=== PATIENT | male | born 1935 | race Caucasian/White ===

== ENCOUNTER 2017-05-11 21:33 | Observation (INO) | payer MEDICARE ==
[~2017-05-11] VITALS: Ht 172.7 cm; Wt 75.0 kg
[~2017-05-11 21:33] MED LIST: ASPI81TA82 PO; ATOR40TA49 PO; CARV6.252 PO; CLOP75 PO; ENAL10TA7 PO; FERR1TAB36 PO; GABA300C5 PO; GLIM4TAB PO; MAGN400T2 PO; METF500 PO; PRIL20CA9 PO; TAB-TAB PO; TERA5CAP3 PO; TRAD5TAB PO
[2017-05-11 21:39] VITALS: BP 171/74; PULSE 80; RESP 16; TEMP 98.2; O2SAT 97
--- NOTE | 2017-05-11 21:45 | PD ---
HPI Chief Complaint: left sided weakness Time Seen by Provider: 21:40 Travel History International Travel<30 days: No Contact w/Intl Traveler<30days: No Traveled to known affect area: No History of Present Illness HPI Patient states that while he was watching the races today on TV he started to develop left-sided tingling and weakness over the left side of the left upper arm and left lower leg. Family also stated that he appeared to develop a facial droop as well. Upon arrival of EMS patient had resolved all symptoms. Once patient arrived to emergency department patient continues to have no symptoms at all. No aggravating or alleviating factors. No associated factors such as fever headache chest pain abdominal pain back pain rash or neck stiffness Primary care is Dr. Cameron with [facility] Patient has a past medical history significant for cardiac stents, coronary artery disease, diabetes, hypertension, Past surgical significant for cardiac stenting PFSH Past Medical History Hx Anticoagulant Therapy: Yes (asa) Cancer: Yes (LUNG, LEUKEMIA) Cardiovascular Problems: Yes Chest Pain: No Coronary Artery Disease: Yes Diabetes: Yes (TYPE II) Endocrine: Yes Gastrointestinal Disorders: No Glaucoma: No Genitourinary: Yes (BPH) Hepatitis: No Hiatal Hernia: Yes Hypertension: Yes Musculoskeletal: No Neurologic: No Respiratory: Yes (SPOT ON LUNG) Integumentary: No Thyroid Disease: No Past Surgical History Abdominal Surgery: Yes (abdominal hernia repair, appendectomy ) Appendectomy: Yes Coronary Artery Bypass Graft: Yes Thoracic Surgery: Yes Other Surgery: Yes (CARDIAC BYPASS TRIPLE) Social History Alcohol Use: No Tobacco Use: No Substance Use: No Allergies-Medications (Allergen,Severity, Reaction): Uncoded Allergies: maxaquin (Allergy, Intermediate, 01/25/16) Reported Meds & Prescriptions Reported Meds & Active Scripts Active Reported Atorvastatin (Atorvastatin Calcium) 40 Mg Tab 40 Mg PO HS Metformin (Metformin HCl) 1,000 Mg Tab 1,000 Mg PO BIDPC Glimepiride 4 Mg Tab 4 Mg PO DAILY Take with breakfast or first main meal Enalapril (Enalapril Maleate) 10 Mg Tab 10 Mg PO BID Plavix (Clopidogrel Bisulfate) 75 Mg Tab 75 Mg PO DAILY Magnesium Oxide 400 Mg Tab 400 Mg PO DAILY Tradjenta (Linagliptin) 5 Mg Tab 2.5 Mg PO DAILY Review of Systems Except as stated in HPI: all other systems reviewed are Neg General / Constitutional: No: Fever Eyes: No: Visual changes HENT: No: Headaches Cardiovascular: No: Chest Pain or Discomfort Respiratory: No: Shortness of Breath Gastrointestinal: No: Abdominal Pain Genitourinary: No: Dysuria Musculoskeletal: No: Pain Skin: No Rash Neurologic: Positive: Weakness, Focal Abnormalities Psychiatric: No: Depression Endocrine: No: Polydipsia Hematologic/Lymphatic: No: Easy Bruising Physical Exam Narrative GENERAL: Elderly white male in no distress. NIH score is 0, GCS is 15 SKIN: Warm and dry. HEAD: Atraumatic. Normocephalic. EYES: Pupils equal and round. No scleral icterus. No injection or drainage. ENT: No nasal bleeding or discharge. Mucous membranes pink and moist. NECK: Trachea midline. No JVD. CARDIOVASCULAR: Regular rate and rhythm. RESPIRATORY: No accessory muscle use. Clear to auscultation. Breath sounds equal bilaterally. GASTROINTESTINAL: Abdomen soft, non-tender, nondistended. Hepatic and splenic margins not palpable. MUSCULOSKELETAL: Extremities without clubbing, cyanosis, or edema. No obvious deformities. NEUROLOGICAL: Awake and alert. No obvious cranial nerve deficits. Motor grossly within normal limits. Five out of 5 muscle strength in the arms and legs. Normal speech. PSYCHIATRIC: Appropriate mood and affect; insight and judgment normal. Data Data Last Documented VS Vital Signs Date Time Temp Pulse Resp B/P (MAP) Pulse Ox O2 Delivery O2 Flow Rate FiO2 05/11/17 22:54 78 16 115/59 (77) 95 Room Air 05/11/17 21:39 98.2 Orders Orders Electrocardiogram (05/11/17 21:57) Prothrombin Time / Inr (Pt) (05/11/17 21:57) Act Partial Throm Time (Ptt) (05/11/17 21:57) Complete Blood Count With Diff (05/11/17 21:57) Comprehensive Metabolic Panel (05/11/17 21:57) Troponin I (05/11/17 21:57) Ct Brain W/O Iv Contrast(Rout) (05/11/17 21:57) Chest, Single Ap (05/11/17 21:57) Ecg Monitoring (05/11/17 21:57) Iv Access Insert/Monitor (05/11/17 21:57) Oximetry (05/11/17 21:57) Sodium Chloride 0.9% Flush (Ns Flush) (05/11/17 22:00) Admit Order (Ed Use Only) (05/11/17 23:17) Labs Laboratory Tests Test 05/11/17 21:50 White Blood Count 7.7 TH/MM3 Red Blood Count 3.92 MIL/MM3 Hemoglobin 12.2 GM/DL Hematocrit 35.3 % Mean Corpuscular Volume 90.1 FL Mean Corpuscular Hemoglobin 31.2 PG Mean Corpuscular Hemoglobin Concent 34.7 % Red Cell Distribution Width 13.4 % Platelet Count 109 TH/MM3 Mean Platelet Volume 9.3 FL Neutrophils (%) (Auto) 54.9 % Lymphocytes (%) (Auto) 39.7 % Monocytes (%) (Auto) 4.4 % Eosinophils (%) (Auto) 0.7 % Basophils (%) (Auto) 0.3 % Neutrophils # (Auto) 4.2 TH/MM3 Lymphocytes # (Auto) 3.1 TH/MM3 Monocytes # (Auto) 0.3 TH/MM3 Eosinophils # (Auto) 0.1 TH/MM3 Basophils # (Auto) 0.0 TH/MM3 CBC Comment AUTO DIFF Differential Comment AUTO DIFF CONFIRMED Platelet Estimate LOW Platelet Morphology Comment ENLARGED Prothrombin Time 10.8 SEC Prothromb Time International Ratio 1.1 RATIO Activated Partial Thromboplast Time 23.4 SEC Blood Urea Nitrogen 15 MG/DL Creatinine 1.01 MG/DL Random Glucose 173 MG/DL Total Protein 6.9 GM/DL Albumin 3.9 GM/DL Calcium Level 9.1 MG/DL Alkaline Phosphatase 79 U/L Aspartate Amino Transf (AST/SGOT) 16 U/L Alanine Aminotransferase (ALT/SGPT) 22 U/L Total Bilirubin 0.5 MG/DL Sodium Level 133 MEQ/L Potassium Level 4.1 MEQ/L Chloride Level 99 MEQ/L Carbon Dioxide Level 24.9 MEQ/L Anion Gap 9 MEQ/L Estimat Glomerular Filtration Rate 71 ML/MIN Troponin I LESS THAN 0.02 NG/ML MDM Medical Decision Making Medical Screen Exam Complete: Yes Emergency Medical Condition: Yes Medical Record Reviewed: Yes Interpretation(s) Pulse ox shows excellent PLetH wave which shows pulse ox 96-97% on room air which is within normal limits EKG shows normal sinus rhythm, 79 bpm, normal intervals, nonspecific ST-T wave changes, no STEMI pattern noted. Differential Diagnosis TIA versus ICH versus CVA versus electrolyte abnormalities Narrative Course ct neg for ich/brain mass. also normal electrolytes. no leukocytosis/anemia. patinet will be admitted for observation and further evaluation Diagnosis Primary Impression: TIA Admitting Information Admitting Physician Requests: Observation Mitchell Cantu MD May 11, 2017 21:45
[2017-05-11] MEDS ORDERED: METF1000 PO (21:46)
[2017-05-11] MEDS ORDERED: GLIM4TAB PO (21:46)
[2017-05-11] MEDS ORDERED: ENAL10TA PO (21:46)
[2017-05-11] MEDS ORDERED: ATOR40TA16 PO (21:46)
[2017-05-11] MEDS ORDERED: PLAV75TA29 PO (21:46)
[2017-05-11] MEDS ORDERED: SODIUM CHLORIDE 0.9% FLUSH 10 ML FLUSH IVF PRN (22:00)
--- NOTE | 2017-05-11 22:31 | RADRPT ---
EXAM DATE/TIME: 05/11/2017 22:07 [facility] COMPARISON: CHEST PA & LAT, March 26, 2015, 16:16. INDICATIONS : Weakness and arm numbness. MEDICAL HISTORY : Hypertension. Myocardial infarction. Stroke. Coronary artery disease. Diabetes. Lung cancer. Leuk emia. SURGICAL HISTORY : CABG. ENCOUNTER: Initial ACUITY: 1 day PAIN SCORE: 0/10 LOCATION: Bilateral chest FINDINGS: A single view of the chest demonstrates linear scarring right upper lobe. Previous median sternotomy. No consolidation. No effusion. No pneumothorax. CONCLUSION: 1. Linear scarring right upper lobe. No acute findings. Postop CABG. Raudel Vargas MD on May 11, 2017 at 22:28 Board Certified Radiologist. This report was verified electronically.
[2017-05-11 22:32] LABS: AUTOMATED NEUTROPHIL # 4.2 TH/MM3 (1.8-7.7); BASOPHIL % 0.3 % (0.0-2.0); EOSINOPHIL # 0.1 TH/MM3 (0-0.4); EOSINOPHIL % 0.7 % (0.0-4.0); HEMATOCRIT 35.3 % (39.0-51.0); HEMOGLOBIN 12.2 GM/DL (13.0-17.0); LYMPH % 39.7 % (9.0-44.0); LYMPHOCYTE # 3.1 TH/MM3 (1.0-4.8); MEAN CELL VOLUME 90.1 FL (80.0-100.0); MEAN CORPUSCULAR HEMOGLOBIN 31.2 PG (27.0-34.0); MEAN CORPUSCULAR HGB CONC 34.7 % (32.0-36.0); MEAN PLATELET VOLUME 9.3 FL (7.0-11.0); MONO % 4.4 % (0.0-8.0); MONOCYTE # 0.3 TH/MM3 (0-0.9); NEUT % 54.9 % (16.0-70.0); PLATELET COUNT 109 TH/MM3 (150-450); RED BLOOD COUNT 3.92 MIL/MM3 (4.50-5.90); RED CELL DISTRIBUTION WIDTH 13.4 % (11.6-17.2); WHITE BLOOD COUNT 7.7 TH/MM3 (4.0-11.0)
--- NOTE | 2017-05-11 22:34 | RADRPT ---
EXAM DATE/TIME: 05/11/2017 22:25 [facility] COMPARISON: No previous studies available for comparison. INDICATIONS : Left sided weakness. RADIATION DOSE: 56.35 CTDIvol (mGy) MEDICAL HISTORY : Diabetes mellitus type 2. Cerebrovascular disease. Leukemia. SURGICAL HISTORY : None. ENCOUNTER: Initial ACUITY: 1 day PAIN SCALE: 0/10 LOCATION: cranial TECHNIQUE: Multiple contiguous axial images were obtained of the head. Using automated exposure control and adj ustment of the mA and/or kV according to patient size, radiation dose was kept as low as reasonably a chievable to obtain optimal diagnostic quality images. DICOM format image data is available electro nically for review and comparison. FINDINGS: CEREBRUM: The ventricles are normal for age. No evidence of midline shift, mass lesion, hemorrhage or acute in farction. No extra-axial fluid collections are seen. POSTERIOR FOSSA: The cerebellum and brainstem are intact. The 4th ventricle is midline. The cerebellopontine angle i s unremarkable. EXTRACRANIAL: The visualized portion of the orbits is intact. SKULL: The calvaria is intact. No evidence of skull fracture. CONCLUSION: 1. No acute intracranial abnormality. Raudel Vargas MD on May 11, 2017 at 22:32 Board Certified Radiologist. This report was verified electronically.
[2017-05-11 22:50] LABS: INTERNATIONAL NORMALIZED RATIO 1.1 RATIO; PROTHROMBIN TIME - PATIENT 10.8 SEC (9.8-11.6)
[2017-05-11 22:51] LABS: ALBUMIN 3.9 GM/DL (3.4-5.0); AST (GOT) 16 U/L (15-37); BICARBONATE 24.9 MEQ/L (21.0-32.0); BLOOD UREA NITROGEN 15 MG/DL (7-18); CALCIUM 9.1 MG/DL (8.5-10.1); CHLORIDE 99 MEQ/L (98-107); CREATININE 1.01 MG/DL (0.60-1.30); GLOMERULAR FILTRATION RATE 71 ML/MIN (>89); GLUCOSE,RANDOM 173 MG/DL (74-106); SODIUM (NA) 133 MEQ/L (136-145)
[2017-05-11 22:52] LABS: ALT (GPT) 22 U/L (12-78)
[2017-05-11 22:54] VITALS: BP 115/59; PULSE 78; RESP 16; O2SAT 95
[2017-05-11 22:56] LABS: ALKALINE PHOSPHATASE 79 U/L (45-117); TOTAL BILIRUBIN ADULT 0.5 MG/DL (0.2-1.0); TOTAL PROTEIN 6.9 GM/DL (6.4-8.2); TROPONIN I LESS THAN 0.02 NG/ML (0.02-0.05)
[2017-05-12] VITALS (9 sets, daily range): BP systolic 120–185; BP diastolic 60–86; PULSE 60–80; RESP 16–20; TEMP 97.4–98.7; O2SAT 94–100
[2017-05-12] MEDS ORDERED: CLOPIDOGREL 75 MG TAB PO ONE (04:15)
[2017-05-12] MEDS ORDERED: ASPIRIN 81 MG CHEW TAB PO ONE (04:15)
[2017-05-12] MEDS ORDERED: ENALAPRIL MALEATE 10 MG TAB PO ONE (04:15)
--- NOTE | 2017-05-12 09:01 | HHI.HP ---
HPI Service [facility] Hospitalists Primary Care Physician Sabas Cameron MD Admission Diagnosis TIA Chief Complaint: Left sided weakness Travel History International Travel<30 Days: No Contact w/Intl Traveler <30 Da: No Traveled to Known Affected Are: No History of Present Illness Mr. Mendez is an 82 y/o male with HTN, hyperlipidemia, AAA, CLL, diabetes mellitus, and CAD. Pt presented to the ER at [facility] with complaints of left sided weakness. Patient states that while he was watching the races today on TV he started to develop left-sided tingling and weakness over the left side of the left upper extremity and left lower extremity. Family also stated that he appeared to develop a facial droop as well. Upon arrival of EMS patient had resolved all symptoms. Once patient arrived to emergency department patient had symptoms. No aggravating or alleviating factors. No associated factors such as fever headache chest pain abdominal pain back pain rash, chest pain, SOB or neck stiffness. Patient reports no residual symptoms at this time is asking when he can go home. Patient reports similar symptoms about 3 months ago. Past Family Social History Past Medical History Coronary artery disease with history of CABG (1998) and stenting (2008) AAA at the distal infrarenal, in 12/2013 this measured 4.5 x 4.7cm and a length of 6.4cm GERD Diabetes Diabetic neuropathy Anemia secondary to chronic disease CKD, stage 2 Chronic lymphocytic leukemia/Small lymphocytic lymphoma and has been on observation TIA x 2 Hypertension Hyperlipidemia BPH [place] cell cancer of the neck with surgery for removal of lesion with radiation treatment. 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 He had cardiac cath with a re-in-stent stenosis and another stent employed May 2014 Appendectomy Hernia repair Hip surgery [place] cell resection in 2012 Skin cancer removals Tonsillectomy Reported Medications Atorvastatin (Atorvastatin Calcium) 40 Mg Tab 40 Mg PO HS Metformin (Metformin HCl) 1,000 Mg Tab 1,000 Mg PO BIDPC Glimepiride 4 Mg Tab 4 Mg PO DAILY Take with breakfast or first main meal Enalapril (Enalapril Maleate) 10 Mg Tab 10 Mg PO BID Plavix (Clopidogrel Bisulfate) 75 Mg Tab 75 Mg PO DAILY Magnesium Oxide 400 Mg Tab 400 Mg PO DAILY Tradjenta (Linagliptin) 5 Mg Tab 2.5 Mg PO DAILY Allergies: Uncoded Allergies: maxaquin (Allergy, Intermediate, 01/25/16) Family History His mother at a younger age, he is unsure but believes she may have had cardiac history. Social History Patient is He is retired. He has a remote history of tobacco use, quit in 1979. Denies any alcohol or drug use. Physical Exam Vital Signs Vital Signs Date Time Temp Pulse Resp B/P (MAP) Pulse Ox O2 Delivery O2 Flow Rate FiO2 05/12/17 03:43 97.4 73 16 185/80 (115) 100 05/12/17 01:07 98.7 73 16 132/65 (87) 96 05/12/17 00:24 05/11/17 22:54 78 16 115/59 (77) 95 Room Air 05/11/17 21:39 98.2 80 16 171/74 (106) 97 Physical Exam GENERAL: This is a well-nourished, well-developed patient, in no apparent distress. SKIN: No rashes, ecchymoses or lesions. Cool and dry. HEAD: Atraumatic. Normocephalic. No temporal or scalp tenderness. EYES: Pupils equal round and reactive. Extraocular motions intact. No scleral icterus. No injection or drainage. ENT: Nose without bleeding, purulent drainage or septal hematoma. Throat without erythema, tonsillar hypertrophy or exudate. Uvula midline. Airway patent. NECK: Trachea midline. No JVD or lymphadenopathy. Supple, nontender, no meningeal signs. CARDIOVASCULAR: Regular rate and rhythm without murmurs, gallops, or rubs. RESPIRATORY: Clear to auscultation. Breath sounds equal bilaterally. No wheezes , rales, or rhonchi. GASTROINTESTINAL: Abdomen soft, non-tender, nondistended. No hepato-splenomegaly , or palpable masses. No guarding. MUSCULOSKELETAL: Extremities without clubbing, cyanosis, or edema. No joint tenderness, effusion, or edema noted. No calf tenderness. Negative Homans sign bilaterally. NEUROLOGICAL: Awake and alert. Cranial nerves II through XII intact. Motor and sensory grossly within normal limits. Five out of 5 muscle strength in all muscle groups. Normal speech. Laboratory Laboratory Tests Test 05/11/17 21:50 White Blood Count 7.7 Red Blood Count 3.92 Hemoglobin 12.2 Hematocrit 35.3 Mean Corpuscular Volume 90.1 Mean Corpuscular Hemoglobin 31.2 Mean Corpuscular Hemoglobin Concent 34.7 Red Cell Distribution Width 13.4 Platelet Count 109 Mean Platelet Volume 9.3 Neutrophils (%) (Auto) 54.9 Lymphocytes (%) (Auto) 39.7 Monocytes (%) (Auto) 4.4 Eosinophils (%) (Auto) 0.7 Basophils (%) (Auto) 0.3 Neutrophils # (Auto) 4.2 Lymphocytes # (Auto) 3.1 Monocytes # (Auto) 0.3 Eosinophils # (Auto) 0.1 Basophils # (Auto) 0.0 CBC Comment AUTO DIFF Differential Comment AUTO DIFF CONFIRMED Platelet Estimate LOW Platelet Morphology Comment ENLARGED Prothrombin Time 10.8 Prothromb Time International Ratio 1.1 Activated Partial Thromboplast Time 23.4 Blood Urea Nitrogen 15 Creatinine 1.01 Random Glucose 173 Total Protein 6.9 Albumin 3.9 Calcium Level 9.1 Alkaline Phosphatase 79 Aspartate Amino Transf (AST/SGOT) 16 Alanine Aminotransferase (ALT/SGPT) 22 Total Bilirubin 0.5 Sodium Level 133 Potassium Level 4.1 Chloride Level 99 Carbon Dioxide Level 24.9 Anion Gap 9 Estimat Glomerular Filtration Rate 71 Troponin I LESS THAN 0.02 Result Diagram: 05/11/17214905/11/172149 Caprini VTE Risk Assessment Caprini VTE Risk Assessment: Mod/High Risk (score >= 2) Caprini Risk Assessment Model Point Value = 1 Point Value = 2 Point Value = 3 Point Value = 5 Age 41-60 Minor surgery BMI > 25 kg/m2 Swollen legs Varicose veins or History of unexplained or recurrent spontaneous Oral contraceptives or hormone replacement Sepsis (< 1 month) Serious lung disease, including pneumonia (< 1 month) Abnormal pulmonary function Acute myocardial infarction Congestive heart failure (< 1 month) History of inflammatory bowel disease Medical patient at bed rest Age 61-74 Arthroscopic surgery Major open surgery (> 45 min) Laparoscopic surgery (> 45 min) Malignancy Confined to bed (> 72 hours) Immobilizing plaster cast Central venous access Age >= 75 History of VTE Family history of VTE Factor V Leiden Prothrombin [id number] Lupus anticoagulant Anticardiolipin antibodies Elevated serum homocysteine Heparin-induced thrombocytopenia Other congenital or acquired thrombophilia Stroke (< 1 month) Elective arthroplasty Hip, pelvis, or leg fracture Acute spinal cord injury (< 1 month) Prophylaxis Regimen Total Risk Factor Score Risk Level Prophylaxis Regimen 0-1 Low Early ambulation 2 Moderate Order ONE of the following: *Sequential Compression Device (SCD) *Heparin 5000 units SQ BID 3-4 Higher Order ONE of the following medications: *Heparin 5000 units SQ TID *Enoxaparin/Lovenox 40 mg SQ daily (WT < 150 kg, CrCl > 30 mL/min) *Enoxaparin/Lovenox 30 mg SQ daily (WT < 150 kg, CrCl > 10-29 mL/min) *Enoxaparin/Lovenox 30 mg SQ BID (WT < 150 kg, CrCl > 30 mL/min) AND/OR *Sequential Compression Device (SCD) 5 or more Highest Order ONE of the following medications: *Heparin 5000 units SQ TID (Preferred with Epidurals) *Enoxaparin/Lovenox 40 mg SQ daily (WT < 150 kg, CrCl > 30 mL/min) *Enoxaparin/Lovenox 30 mg SQ daily (WT < 150 kg, CrCl > 10-29 mL/min) *Enoxaparin/Lovenox 30 mg SQ BID (WT < 150 kg, CrCl > 30 mL/min) AND *Sequential Compression Device (SCD) Assessment and Plan Problem List: (1) Left-sided weakness ICD Codes: R53.1 - Weakness Plan: TIA versus CVA Patient had left-sided weakness which has resolved likely TIA CT to have reviewed and reveals no acute intracranial abnormality Chest x-ray reviewed and revealed linear scarring right upper lobe. No acute findings. Postop CABG MRI and MRA of brain requested and pending US bilateral carotid arteries Echocardiogram Continuous telemetry monitoring Holter monitor PT evaluation requested HOB flat Allow permissive hypertension Consult neurology (2) Diabetes ICD Codes: E11.9 - Type 2 diabetes mellitus without complications Status: Chronic Plan: Patient takes Tradjenta, metformin and glimepiride at home- will hold Metformin at this time continue Trajenta (patient requested to bring his own as our pharmacy does not carry Trajenta), will also continue glimepiride Diabetic diet with Accu-Cheks before meals and at bedtime and sliding scale insulin coverage (3) Hyperlipidemia ICD Codes: E78.5 - Hyperlipidemia, unspecified Plan: Continue patient's home atorvastatin 40 mg by mouth daily at bedtime Lipid panel in a.m. (4) HTN (hypertension), benign ICD Codes: I10 - Essential (primary) hypertension Status: Chronic Plan: Permissive hypertension Enalapril as needed (5) CAD (coronary artery disease) ICD Codes: I25.10 - Atherosclerotic heart disease of [place] coronary artery without angina pectoris Status: Acute Plan: Continue patient's home Plavix and atorvastatin (6) AAA (abdominal aortic aneurysm) ICD Codes: I71.4 - Abdominal aortic aneurysm, without rupture Status: Chronic Plan: AAA at the distal infrarenal, in 12/2013 this measured 4.5 x 4.7cm and a length of 6.4cm Patient reports that he follows with Dr. Huitron at the [facility] and that he has had a repair 12/2013 Assessment and Plan Patient examined. Assessment and plan formulated with Sonia Holley PA-C. I agree with the above. Sonia Holley May 12, 2017 09:01 Samuel Conde DO May 15, 2017 01:07
[2017-05-12] MEDS ORDERED: ENALAPRILAT 1.25 MG/ML VIAL IV PUSH PRN (09:30)
[2017-05-12] MEDS ORDERED: DEXTROSE 50% IN WATER 50 ML VIAL(D50) IV PUSH PRN ×2 (09:45→17:45)
[2017-05-12] MEDS ORDERED: GLUCAGON 1 MG/ML VIAL OTHER PRN ×2 (09:45→17:45)
--- NOTE | 2017-05-12 10:56 | RADRPT ---
EXAM DATE/TIME: 05/12/2017 09:52 [facility] COMPARISON: No previous studies available for comparison. INDICATIONS : Cerebrovascular accident. MEDICAL HISTORY : Stroke. Myocardial infarction. Hypercholesterolemia. Coronary artery disease. Anticoagulant therapy. Hypertension. Sleep apnea. Hiatal hernia. BPH. Chronic kidney disease. Diabetes. Lung cancer. Skin ca ncer. SURGICAL HISTORY : CABG. Appendectomy. Hernia repair. ENCOUNTER: Initial ACUITY: 1 day PAIN SCORE: 1/10 LOCATION: Bilateral neck PEAK SYSTOLIC VELOCITIES (cm/sec): ICA/CCA RATIO: Right: 1.8 Left: 1.8 ICA: Right: 132 Left: 128 CCA: Right: 75 Left: 70 ECA: Right: 104 Left: 110 VERTEBRAL: Right: 43 antegrade Left: 46 antegrade Elevated flow velocities and ICA/CCA ratios have been found to correlate with increased degrees of vessel stenosis, calculated as percentage of diameter relative to a normal segment of distal ICA/CCA FINDINGS: RIGHT CAROTID: There is moderate calcified atherosclerotic plaque evident at the bifurcation. The waveforms are with in normal limits. LEFT CAROTID: There is moderate calcified atherosclerotic plaque evident at the bifurcation. The waveforms are with in normal limits. VERTEBRAL ARTERIES: Antegrade flow is seen in both vertebral arteries. MISCELLANEOUS: None. CONCLUSION: 1. Calcified atherosclerotic plaquing of the bifurcations. 2. Exam demonstrates a slight elevation of the peak systolic velocity bilaterally. This would suggest a mild degree of stenosis at the carotid bifurcations. This is less than 50% by criteria. Donta Khan MD on May 12, 2017 at 10:50 Board Certified Radiologist. This report was verified electronically.
[2017-05-12] MEDS ORDERED: LINAGLIPTIN 2.5 MG PO SCH ×2 (12:30→14:00)
[2017-05-12] MEDS: INSULIN ASPART SUPPLEMENTAL SCALE SQ SCH ×3 (12:58→21:30)
[2017-05-12] MEDS: GLIMEPIRIDE 4 MG TAB PO SCH (14:32)
[2017-05-12 14:48] LABS: FREE T4 0.94 NG/DL (0.76-1.46)
[2017-05-12 14:49] LABS: FOLATE GREATER THAN 20.0 NG/ML (3.1-17.5)
[2017-05-12] MEDS ORDERED: SODIUM CHLORIDE 0.9% FLUSH 10 ML FLUSH IV FLUSH PRN (17:45)
[2017-05-12] MEDS: ASPIRIN 325 MG TAB PO SCH (18:28)
--- NOTE | 2017-05-12 18:39 | MB ---
cc: ANA WEBER DATE OF CONSULTATION 05/12/17 REASON FOR CONSULTATION TIA. HISTORY OF PRESENT ILLNESS Mr. Mendez is an 81 year old man who has a history of abdominal aortic repair, hypertension and hyperlipidemia who yesterday had sudden onset of weakness involving the left arm and left leg. This lasted about 10 minutes or so and then it resolved. He had no speech changes or other difficulties. He had a similar episode in the past. He takes Plavix because of the repair of the abdominal aortic aneurysm. He states he had to come off the Plavix about two weeks ago for some skin cancer surgery but resumed it shortly after that. PAST MEDICAL HISTORY 1. History of coronary artery disease with coronary artery bypass graft in the past, stenting 2. Abdominal aortic aneurysm 3. History of diabetes, diabetic neuropathy, 4. Anemia of chronic disease, 5. Chronic kidney disease, 6. Chronic lymphocytic leukemia 7. Transient ischemic attack in the past, 8. Hyperlipidemia, 9. Hypertension, 10. Benign prostatic hypertrophy 11. [place] cell cancer of the neck with surgery for removal and radiation therapy 12. Squamous cell cancer of right upper lung 13. Right upper lobe lung nodule treated with radiation therapy. 14. Multiple skin cancers MEDICATIONS At home 1. Plavix 75 mg daily, 2. Metformin 1000 mg b.i.d., 3. Atorvastatin 40 mg daily, 4. Glimepiride 0.4 mg daily, 5. Enalapril 10 mg b.i.d., 6. Magnesium oxide 7. Tradjenta ALLERGIES MAXAQUIN. SOCIAL HISTORY He quit smoking in 1979. Denies any alcohol use. NEUROLOGIC EXAMINATION VITAL SIGNS: Blood pressure 120/60, pulse is 60, respirations are 20, temperature 98 degrees. Higher cortical function - he is alert and oriented x3. Speech is normal. Cranial nerves II-XII are normal in detail. Motor exam demonstrates 5/5 strength of all groups in both upper and lower extremities. There is no drift. Fine motor skills are within normal limits. Reflexes are symmetric. IMAGING STUDIES CT scan of the head shows no acute change. Carotid ultrasound less than 50% stenosis bilaterally. No significant stenosis is seen. LABORATORY DATA White count 7700, hemoglobin 12.2, hematocrit 35.3%, platelet count 109,000, PT 10.8, INR 1.1, APTT 23.4. Sodium is 133, potassium 4.1, chloride 99, CO2 24.9, BUN is 15, creatinine 1.01, calcium 9.1, AST 16, ALT is 22, B12 is 361. CARDIOLOGY STUDIES EKG - normal sinus rhythm, nonspecific ST and T-wave abnormality. IMPRESSION TIA now resolved. RECOMMENDATIONS Add aspirin 325 mg daily to the Plavix 75 mg daily. We will monitor cardiac telemetry, rule out atrial fibrillation. We will obtain an echocardiogram. Consult cardiology to consider a long-term water resources engineer to rule out A. Fib. If this were found, she would need to go on anticoagulation. Also check lipid panel. MD ADAN Mitchell/ /5:34 PM /6:18 PM
[2017-05-12] MEDS ORDERED: ATORVASTATIN 40 MG TAB PO SCH (21:00)
[2017-05-12] MEDS: SODIUM CHLORIDE 0.9% FLUSH 10 ML FLUSH IV FLUSH SCH (21:21)
[2017-05-12 21:40] LABS: HEMOGLOBIN A1C 7.1 % (4.3-6.0)
--- NOTE | 2017-05-13 00:21 | EKG ---
Date Performed: 05/11/2017 Time Performed: 21:43:03 PTAGE: 82 years EKG: Sinus rhythm NONSPECIFIC ST & T-WAVE ABNORMALITY BORDERLINE ECG Since the prior tracing, there has been no signif icant change DOCTOR: Johnnie Machuca Interpretating Date/Time 05/13/2017 00:20:37
[2017-05-13 03:14] VITALS: BP 139/72; PULSE 70; RESP 16; TEMP 97.9; O2SAT 95
[2017-05-13] MEDS: INSULIN ASPART SUPPLEMENTAL SCALE SQ SCH ×2 (08:00→12:00)
[2017-05-13 08:20] LABS: CHOLESTEROL/ HDL RATIO 2.67 RATIO; HDL CHOLESTEROL 39.7 MG/DL (40.0-60.0)
[2017-05-13 08:35] VITALS: PULSE 70
--- NOTE | 2017-05-13 08:43 | RADRPT ---
EXAM DATE/TIME: 05/13/2017 07:43 [facility] COMPARISON: MRI BRAIN W/O CONTRAST, May 13, 2017, 7:43. INDICATIONS : Left sided weakness. Resolved. MEDICAL HISTORY : Cardiovascular disease Diabetes mellitus type 2. Renal insufficiency, chronic. Carcinoma, skin SURGICAL HISTORY : Abdominal aortic aneurysm repair. Appendectomy. Tonsillectomy. Skin cancer removals. ENCOUNTER: Initial ACUITY: 1 day PAIN SCORE: 0/10 LOCATION: cranial Please note a normal MRA of the brain does not entirely exclude the possibility of a small aneurysm, nor the possibility of distal intracranial vessel disease. TECHNIQUE: 3D time of flight MRA was performed. Source images, multiplanar STS MIP, and 3D volume MIP reconstru ctions were reviewed. FINDINGS: There is excellent visualization of the major intracranial arteries out to the second-order branch ve ssels. There is no evidence for aneurysm, vessel truncation or stenosis, and no evidence for vascula r malformation. CONCLUSION: Normal examination for a patient of this age. John Paul Blanchard MD on May 13, 2017 at 8:40 Board Certified Radiologist. This report was verified electronically.
--- NOTE | 2017-05-13 08:44 | RADRPT ---
EXAM DATE/TIME: 05/13/2017 07:43 [facility] COMPARISON: No previous studies available for comparison. INDICATIONS : Left sided weakness. Resolved. MEDICAL HISTORY : Diabetes mellitus type 2. Cardiovascular disease Renal insufficiency, chronic. Carcinoma, skin. SURGICAL HISTORY : Abdominal aortic aneurysm repair. Appendectomy. Tonsillectomy. Skin cancer removals. ENCOUNTER: Initial ACUITY: 1 day PAIN SCORE: 0/10 LOCATION: cranial TECHNIQUE: Multiplanar, multisequence MRI of the brain was performed without contrast. FINDINGS: CEREBRUM: The ventricles are normal for age. Mild bilateral cortical atrophy. No evidence of midline shift, ma ss lesion, hemorrhage or acute infarction. No extraaxial fluid collections are seen. The pituitary gland and suprasellar cistern are normal in configuration. WHITE MATTER: No significant signal abnormalities are seen in the white matter. A few tiny high signal spots are se en bilaterally characteristic of ischemic demyelinization. POSTERIOR FOSSA: The cerebellum and brainstem are intact. The 4th ventricle is midline. The cerebellopontine angle is unremarkable. The cerebellar tonsils are normal in position. DIFFUSION IMAGING: No focal areas of restricted diffusion are seen. No evidence of acute infarction. EXTRACRANIAL: The visualized portions of the orbits and paranasal sinuses are unremarkable. CONCLUSION: 1. Mild bilateral cortical atrophy and chronic white matter changes characteristic for patient's age. 2. Otherwise, unremarkable examination. John Paul Blanchard MD on May 13, 2017 at 8:41 Board Certified Radiologist. This report was verified electronically.
[2017-05-13] MEDS ORDERED: ASPIRIN 325 MG TAB PO SCH (09:00)
[2017-05-13] MEDS ORDERED: CLOPIDOGREL 75 MG TAB PO SCH (09:00)
[2017-05-13] MEDS: ASPIRIN 325 MG TAB PO SCH (09:14)
[2017-05-13] MEDS: GLIMEPIRIDE 4 MG TAB PO SCH (09:14)
[2017-05-13] MEDS: SODIUM CHLORIDE 0.9% FLUSH 10 ML FLUSH IV FLUSH SCH (09:15)
[2017-05-13 09:22] VITALS: BP 104/56; PULSE 77; RESP 20; TEMP 97.9; O2SAT 98
[2017-05-13 12:03] VITALS: BP 110/58; PULSE 68; RESP 20; TEMP 98.2; O2SAT 96
[2017-05-13] MEDS ORDERED: ASA325 PO (14:05)
--- NOTE | 2017-05-13 14:13 | HHI.PR ---
Subjective Remarks Patient reports feeling well, no residual effects, asking to go home Objective Vitals Vital Signs Date Time Temp Pulse Resp B/P (MAP) Pulse Ox O2 Delivery O2 Flow Rate FiO2 05/13/17 12:03 98.2 68 20 110/58 (75) 96 05/13/17 09:22 97.9 77 20 104/56 (72) 98 05/13/17 08:35 70 05/13/17 03:14 97.9 70 16 139/72 (94) 95 05/12/17 23:05 97.4 69 20 127/70 (89) 94 Manual Cuff/Auscultation 05/12/17 20:17 149/86 (107) 05/12/17 20:09 98.1 76 20 97 05/12/17 19:52 97 05/12/17 15:56 98.2 80 20 120/60 (80) 96 Result Diagram: 05/11/17214905/11/172149 Other Results Laboratory Tests Test 05/11/17 21:50 05/12/17 13:25 05/12/17 19:46 05/13/17 06:36 White Blood Count 7.7 TH/MM3 Red Blood Count 3.92 MIL/MM3 Hemoglobin 12.2 GM/DL Hematocrit 35.3 % Mean Corpuscular Volume 90.1 FL Mean Corpuscular Hemoglobin 31.2 PG Mean Corpuscular Hemoglobin Concent 34.7 % Red Cell Distribution Width 13.4 % Platelet Count 109 TH/MM3 Mean Platelet Volume 9.3 FL Neutrophils (%) (Auto) 54.9 % Lymphocytes (%) (Auto) 39.7 % Monocytes (%) (Auto) 4.4 % Eosinophils (%) (Auto) 0.7 % Basophils (%) (Auto) 0.3 % Neutrophils # (Auto) 4.2 TH/MM3 Lymphocytes # (Auto) 3.1 TH/MM3 Monocytes # (Auto) 0.3 TH/MM3 Eosinophils # (Auto) 0.1 TH/MM3 Basophils # (Auto) 0.0 TH/MM3 CBC Comment AUTO DIFF Differential Comment AUTO DIFF CONFIRMED Platelet Estimate LOW Platelet Morphology Comment ENLARGED Prothrombin Time 10.8 SEC Prothromb Time International Ratio 1.1 RATIO Activated Partial Thromboplast Time 23.4 SEC Blood Urea Nitrogen 15 MG/DL Creatinine 1.01 MG/DL Random Glucose 173 MG/DL Total Protein 6.9 GM/DL Albumin 3.9 GM/DL Calcium Level 9.1 MG/DL Alkaline Phosphatase 79 U/L Aspartate Amino Transf (AST/SGOT) 16 U/L Alanine Aminotransferase (ALT/SGPT) 22 U/L Total Bilirubin 0.5 MG/DL Sodium Level 133 MEQ/L Potassium Level 4.1 MEQ/L Chloride Level 99 MEQ/L Carbon Dioxide Level 24.9 MEQ/L Anion Gap 9 MEQ/L Estimat Glomerular Filtration Rate 71 ML/MIN Troponin I LESS THAN 0.02 NG/ML Ammonia 23 MCMOL/L Vitamin B12 Level 361 PG/ML Folate GREATER THAN 20.0 NG/ML Free Thyroxine 0.94 NG/DL Thyroid Stimulating Hormone 3rd Gen 1.480 uIU/ML Hemoglobin A1c 7.1 % Triglycerides Level 112 MG/DL Cholesterol Level 106 MG/DL LDL Cholesterol 44 MG/DL HDL Cholesterol 39.7 MG/DL Cholesterol/HDL Ratio 2.67 RATIO Imaging Last Impressions Head Magnetic Resonance Angiography 05/13/17 0000 Signed Impressions: Service Date/Time: Saturday, May 13, 2017 07:43 - CONCLUSION: Normal examination for a patient of this age. John Paul Blanchard MD Brain MRI 05/13/17 0000 Signed Impressions: Service Date/Time: Saturday, May 13, 2017 07:43 - CONCLUSION: 1. Mild bilateral cortical atrophy and chronic white matter changes characteristic for patient's age. 2. Otherwise, unremarkable examination. John Paul Blnachard MD Carotid Artery Ultrasound 05/12/17 0000 Signed Impressions: Service Date/Time: Friday, May 12, 2017 09:52 - CONCLUSION: 1. Calcified atherosclerotic plaquing of the bifurcations. 2. Exam demonstrates a slight elevation of the peak systolic velocity bilaterally. This would suggest a mild degree of stenosis at the carotid bifurcations. This is less than 50%% by criteria. Donta Khan MD Head CT 05/11/172156 Signed Impressions: Service Date/Time: April 22:25 - CONCLUSION: 1. No acute intracranial abnormality. Raudel Vargas MD Chest X-Ray 05/11/172156 Signed Impressions: Service Date/Time: April 22:07 - CONCLUSION: 1. Linear scarring right upper lobe. No acute findings. Postop CABG. Raudel Vargas MD Objective Remarks GENERAL: This is a well-nourished, well-developed patient, in no apparent distress. CARDIOVASCULAR: Regular rate and rhythm without murmurs, gallops, or rubs. RESPIRATORY: Clear to auscultation. Breath sounds equal bilaterally. No wheezes , rales, or rhonchi. GASTROINTESTINAL: Abdomen soft, non-tender, nondistended. Normal active bowel sounds MUSCULOSKELETAL: Extremities without clubbing, cyanosis, or edema. NEURO: Alert & Oriented x4 to person, place, time, situation. Moves all ext x4 A/P Problem List: (1) Left-sided weakness ICD Codes: R53.1 - Weakness Plan: TIA versus CVA Patient had left-sided weakness which has resolved likely TIA CT to have reviewed and reveals no acute intracranial abnormality Chest x-ray reviewed and revealed linear scarring right upper lobe. No acute findings. Postop CABG MRI of the brain reviewed and revealed mild bilateral cortical atrophy and chronic white matter changes characteristic for patient's age. Otherwise unremarkable exam MRA of the head reviewed and reveals normal examination for patient of this age [place] bilateral carotid arteries: Side atherosclerotic plaquing of the bifurcations. Exam demonstrates a slight elevation of the peak systolic velocity bilaterally. This would suggest a mild degree of stenosis at the carotid bifurcation. This is less than 50% by criteria Echocardiogram completed no results yet, to to follow up with PCP Continuous telemetry monitoring Holter monitor PT evaluation requested HOB flat initially Allow permissive hypertension, initially Consult neurology, appreciate input. Recommending Add aspirin 325 mg daily to the Plavix 75 mg daily. 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 If this were found, she would need to go on anticoagulation. Lipid panel LDL 44 DC patient home in stable condition on heart healthy diabetic diet. Medication initiated aspirin 325 mg by mouth daily in addition to his regular home medications. Patient to resume home lisinopril once systolic blood pressure greater than 120 mmHg. Patient to follow-up with PCP Dr. ho, neurology Dr. Soria and cardiology Dr. [place] (2) Diabetes ICD Codes: E11.9 - Type 2 diabetes mellitus without complications Status: Chronic Plan: Patient takes Tradjenta, metformin and glimepiride at home- will hold Metformin at this time continue Trajenta (patient requested to bring his own as our pharmacy does not carry Trajenta), will also continue glimepiride Diabetic diet with Accu-Cheks before meals and at bedtime and sliding scale insulin coverage (3) Hyperlipidemia ICD Codes: E78.5 - Hyperlipidemia, unspecified Plan: Continue patient's home atorvastatin 40 mg by mouth daily at bedtime Lipid panel in a.m. (4) HTN (hypertension), benign ICD Codes: I10 - Essential (primary) hypertension Status: Chronic Plan: Permissive hypertension Enalapril as needed Lisinopril was held during hospitalization. Patient instructed to resume if SBP > 120 (5) CAD (coronary artery disease) ICD Codes: I25.10 - Atherosclerotic heart disease of [place] coronary artery without angina pectoris Status: Acute Plan: Continue patient's home Plavix and atorvastatin (6) AAA (abdominal aortic aneurysm) ICD Codes: I71.4 - Abdominal aortic aneurysm, without rupture Status: Chronic Plan: AAA at the distal infrarenal, in 12/2013 this measured 4.5 x 4.7cm and a length of 6.4cm Patient reports that he follows with Dr. Huitron at the [facility] and that he has had a repair 12/2013 Assessment and Plan Patient examined. Assessment and plan formulated with Sonia Holley PA-C. I agree with the above. Sonia Holley May 13, 2017 14:13 Samuel Conde DO May 15, 2017 01:06
--- NOTE | 2017-05-13 16:56 | ECHRPT ---
Indication: CVA/TIA CONCLUSIONS Mildly dilated left ventricle. Wall thickness is normal. The left ventricular systolic function is moderately reduced with an estimated ejection fraction in the range of 40-45%. Trace mitral valve regurgitation. Mild aortic valve regurgitation. Mild pulmonary valve regurgitation. BP: / HR: Rhythm: MEASUREMENTS (Male / Female) Normal Values Technical Quality:Good 2D ECHO LV Diastolic Diameter PLAX 5.3 cm 4.2 - 5.9 / 3.9 - 5.3 cm LV Systolic Diameter PLAX 4.4 cm IVS Diastolic Thickness 1.0 cm 0.6 - 1.0 / 0.6 - 0.9 cm LVPW Diastolic Thickness 0.6 cm 0.6 - 1.0 / 0.6 - 0.9 cm LV Relative Wall Thickness 0.3 M-MODE Aortic Root Diameter MM 3.8 cm AV Cusp Separation MM 2.1 cm DOPPLER Mitral E Point Velocity 54.8 cm/s Mitral A Point Velocity 79.5 cm/s Mitral E to A Ratio 0.7 TR Peak Velocity 235.0 cm/s TR Peak Gradient 22.1 mmHg FINDINGS LEFT VENTRICLE Mildly dilated left ventricle. Wall thickness is normal. The left ventricular systolic function is moderately reduced with an estimated ejection fraction in the range of 40-45%. RIGHT VENTRICLE Normal right ventricular size and systolic function. LEFT ATRIUM The left atrial size is normal. RIGHT ATRIUM The right atrial size is normal. ATRIAL SEPTUM Normal atrial septal thickness without atrial level shunting by limited color doppler interrogation. AORTA The aortic root and proximal ascending aorta are normal in size on limited imaging. MITRAL VALVE Trace mitral valve regurgitation. AORTIC VALVE Mild aortic valve regurgitation. TRICUSPID VALVE Structurally normal tricuspid valve. No tricuspid valve stenosis or regurgitation. PULMONARY VALVE Mild pulmonary valve regurgitation. VESSELS The inferior vena cava is normal in size. PERICARDIUM No pericardial effusion. Aryan Arnett MD, FACC, FSCAI (Electronically Signed) Final Date:13 May 2017 16:55
--- NOTE | 2017-05-15 23:15 | HM ---
Date Performed: 05/13/2017 Time Performed: 11:49:00 HOOKUP DATE: 05/13/17 11:49:00 AM Sat ANALYSIS START TIME: 05/13/2017 11:54:00 AM ANALYSIS END TIME: 05/14/2017 11:57:59 AM PATIENT AGE: 82 PATIENT HEIGHT PATIENT WEIGHT DRUG LIST PATIENT DIAGNOSIS: TIA TEST NARRATIVE: The patient's average heart rate was 78 BPM. No episodes of tachycardia wer e noted. No episodes of bradycardia were noted. No pauses exceeding 2.0 seconds were noted. 27 ventricular ectopics, which represented < 1% of the total beat count, were noted. The highest milly tricular ectopic frequency occurred from 01:00 PM to 02:00 PM Sat. During this time 4 VE(s) occurred . Ventricular ectopics were observed as 23 isolated beat(s) and as 1 run(s). No supraventricular ectopics were noted. Multiple episodes of ST depression (defined as -1.0 mm or more) were noted in channel 1. The maximum depression of -1.9 mm occurred at 08:16:54 PM Sat. In channel 2, a singl e episode of ST depression (defined as -1.0 mm or more) occurred at 08:16:53 PM Sat with a maximum de pression of -1.7 mm. In channel 3, a single episode of ST depression (defined as -1.0 mm or more) oc curred at 08:17:08 PM Sat with a maximum depression of -1.5 mm. NO DIARY ENTRIES TEST INTERPRETATION: Sinus rhythm Short burst of SVT No pause No ventricular tachycardia No pause observed There is no entry in the di felisa Signed by : Merritt Corbett
== END 2017-05-13 15:14 | disposition home or self-care (01) ==
LOC: NEPE 21:33 → NEDA 23:19 → NEPGCP 05-12 00:47 → HCIS 05-13 08:22
PROVIDERS: ADMIT Hospitalist; ATTEND Hospitalist
DX: G45.9 Transient cerebral ischemic attack, unspecified (principal); E78.5 Hyperlipidemia, unspecified; I25.10 Atherosclerotic heart disease of native coronary artery without angina pectoris; I71.4 Abdominal aortic aneurysm, without rupture; I12.9 Hypertensive chronic kidney disease with stage 1 through stage 4 chronic kidney disease, or unspecified chronic kidney disease; E11.22 Type 2 diabetes mellitus with diabetic chronic kidney disease; N18.2 Chronic kidney disease, stage 2 (mild); E11.40 Type 2 diabetes mellitus with diabetic neuropathy, unspecified; C91.10 Chronic lymphocytic leukemia of B-cell type not having achieved remission; I47.1 Supraventricular tachycardia; I25.2 Old myocardial infarction; G31.9 Degenerative disease of nervous system, unspecified; K21.9 Gastro-esophageal reflux disease without esophagitis; N40.0 Benign prostatic hyperplasia without lower urinary tract symptoms; Z95.1 Presence of aortocoronary bypass graft; Z95.5 Presence of coronary angioplasty implant and graft; Z85.828 Personal history of other malignant neoplasm of skin; Z85.118 Personal history of other malignant neoplasm of bronchus and lung; Z86.73 Personal history of transient ischemic attack (TIA), and cerebral infarction without residual deficits; Z79.899 Other long term (current) drug therapy; Z79.84 Long term (current) use of oral hypoglycemic drugs; Z79.02 Long term (current) use of antithrombotics/antiplatelets; Z87.891 Personal history of nicotine dependence; Z92.3 Personal history of irradiation
CPT/HCPCS: 70450; 70544; 70551; 71045; 80053; 80061; 82140; 82607; 82746; 82948; 83036; 84439; 84443; 84484; 85025; 85610; 85730; 86592; 93005; 93225; 93226; 93306; 93880; 97162; 99285; G0378; G8987; G8988; J1815